=== PATIENT | male | born 1995 | race Caucasian/White ===

== ENCOUNTER 2018-07-05 20:18 | Emergency (ER) | payer BC ==
--- NOTE | 2018-07-05 20:24 | EDPHY ---
H & P Time Seen by Provider: 07/05/18 20:20 Constitutional: Initial Vital Signs Temperature (C) 36.9 C 07/05/18 20:21 Heart Rate 84 07/05/18 20:21 Respiratory Rate 16 07/05/18 20:21 Blood Pressure 149/95 H 07/05/18 20:21 O2 Sat (%) 95 07/05/18 20:21 O2 Delivery Mode Room Air Allergies/Adverse Reactions: No Known Allergies Allergy (Unverified 07/05/18 20:25) Home Medications: Medication Instructions Recorded NK [No Known Home Meds] 07/05/18 Medical Decision Making - Diagnostics Imaging: Discussed imaging studies w/ call center specialist Radiologist, I viewed and interpreted images myself - Diagnostics Imaging Results: Imaging Impressions Head CT 07/05/18 20:28 Impression: 1. There is an 8.9 x 6.0 x 1.7 cm posterior parietal-high occipital scalp/ subgaleal hematoma. 2. There is no skull fracture or acute intracranial abnormality identified on this unenhanced CT evaluation. If there is further clinical concern regarding the patient's symptoms, MR imaging is suggested, if not otherwise contraindicated. Findings were discussed with Chase Stokes MD at 20:58, on 07/05/2018. Procedures: Laceration Repair - SCALP LACERATION 1. Verbal consent obtained by patient. Risks discussed, including but not limited to infection, pain, retained foreign body, need for additional repair, poor cosmetic result, tendon damage, nerve damage, poor wound healing, vascular damage. Alternatives to repair discussed. [place] protocol used to establish correct patient, procedure, equipment, legal support manager, and site. Anesthesia obtained by local infiltration. Anesthetized with 2% lidocaine with epinephrine. Laceration location occiput, length 4 cm, depth 3 mm, Repair type simple. Patient was prepped and draped in usual sterile fashion. Hemostasis achieved with direct pressure. Wound explored through full range of motion and entire depth of wound probed and visualized with gloved finger. No suspicion for nerve damage, tendon damage, underlying fracture, vascular damage, foreign body, or contamination. Area was cleansed with Shur-Clens and irrigated with sterile saline as per protocol. No foreign body or material removed. Repair method 4 0 VICRYL SUTURES, SIMPLE INTERRUPTED. One of sutures placed. Seven valentni placed superficially. Well aligned, closely approximated. wound was dressed with . Patient tolerated well with no immediate complications. Wound care: Clean and dry x 24 hours, gently clean with soap and water, cover with topical antibiotic ointment/bandage. Suture/Staple removal: 10-14 Days Laceration Repair - scalp laceration 2. Verbal consent obtained by patient. Risks discussed, including but not limited to infection, pain, retained foreign body, need for additional repair, poor cosmetic result, tendon damage, nerve damage, poor wound healing, vascular damage. Alternatives to repair discussed. [place] protocol used to establish correct patient, procedure, equipment, legal support manager, and site. Anesthesia obtained by local infiltration. Anesthetized with 2% lidocaine with epinephrine. Laceration location occiput, length 3 cm, depth 3 mm, Repair type simple. Patient was prepped and draped in usual sterile fashion. Hemostasis achieved with direct pressure. Wound explored through full range of motion and entire depth of wound probed and visualized with gloved finger. No suspicion for nerve damage, tendon damage, underlying fracture, vascular damage, foreign body, or contamination. Area was cleansed with Shur-Clens and irrigated with sterile saline as per protocol. No foreign body or material removed. Repair method 4 0 Vicryl suture, 2 simple interrupted. two of sutures placed. Eleven valentin placed Well aligned, closely approximated. wound was dressed with nothing. Patient tolerated well with no immediate complications. Wound care: Clean and dry x 24 hours, gently clean with soap and water, cover with topical antibiotic ointment/bandage. Suture/Staple removal: 10-14 Days (Bob Noyola) ED Course/Re-evaluation: CHIEF COMPLAINT: Head injury secondary skateboarding fall HISTORY OF PRESENT ILLNESS: The patient is a 22 y/o male arriving via EMS in a c-collar after falling off of his skateboard tonight. The patient hit a patch of sand and subsequently fell off his skateboard when he wasn't wearing a helmet. He hit his head and now has a "blank spot" in his memory. A bystander witnessed the fall and called EMS. He denies using alcohol or drugs today. No fever, body aches, lightheadedness, chest pain, heart palpitations, shortness of breath, cough, abdominal pain, urinary or bowel complaints, numbness, paresthesias. REVIEW OF SYSTEMS: A 10 point review of systems was performed and is negative with the exception of the elements mentioned in the history of present illness. PHYSICAL EXAM: HR, BP, O2 Sat, RR. Temp noted General Appearance: Alert, well hydrated, appropriate, and non-toxic appearing. Head: 2.5cm laceration and 3 cm to occiput. Eyes: Pupils equal, round, reactive to light and accommodation, EOMI, no trauma , no injection. Ears: Clear bilaterally, no perforation, normal landmarks Nose: Atraumatic, no rhinorrhea, clear. Throat: There is no erythema or exudates, no lesions, normal tonsils, mucus membranes moist. Neck: Supple, 2+ carotid upstroke, nontender, no lymphadenopathy. Respiratory: No retractions, no distress, no wheezes, and no accessory muscle use. Lungs are clear to auscultation bilaterally. Cardiovascular: Regular rate and rhythm, no murmurs, rubs, or gallops. Bilateral carotid, radial, dorsalis pedis, and posterior tibial pulses intact. Good capillary refill all extremities. Gastrointestinal: Abdomen is soft, nontender, non-distended, no masses, no rebound, no guarding, no peritoneal signs. Musculoskeletal: Normal active ROM of all extremities, atraumatic. Neurological: Alert, appropriate, and interactive. The patient has normal DTRs and non-focal cranial nerves, motor, sensory, and cerebellar exam. Skin: No rashes, good turgor, no nodules on palpation. Past medical history: Denies Past surgical history: Denies Family history: Denies Social history: Student at , single, lives in [place] DIAGNOSTICS/PROCEDURES/CRITICAL CARE TIME: Head CT: No acute findings. DIFFERENTIAL DIAGNOSIS: The differential diagnosis for the patient's head injury included but was not limited to concussion, skull fracture, intra-parenchymal contusion, subarachnoid , subdural and epidural hematoma. MEDICAL DECISION MAKING: The patient is a 22 y/o male arriving via EMS in a c-collar after falling off of his skateboard tonight. He did lose consciousness for an unknown amount of time and as amnesia regarding the fall. He was not helmeted. On exam he has a 2.5cm laceration and 3 cm laceration to his occiput. I also removed his C- collar as he cleared his c-spine. Head CT ordered. STEFFANY Noyola will suture the laceration. 2100: I spoke with Dr. Gomez, radiologist, regarding patients head CT. There are no acute findings. 2103: Reassessed patient and discussed imaging studies. I have advised him to follow up with Dr. Foster and follow post-concussive precautions. Return precautions provided; patient is comfortable with this plan. (Chase Stokes) Departure - Departure Disposition: Home, Routine, Self-Care Clinical Impression: Head injury Qualifiers: Encounter type: initial encounter Qualified Code(s): S09.90XA - Unspecified injury of head, initial encounter Laceration of head Qualifiers: Encounter type: initial encounter Location of open wound of head: scalp Foreign body presence: without foreign body Qualified Code(s): S01.01XA - Laceration without foreign body of scalp, initial encounter Condition: Good Instructions: Laceration (ED), Concussion (ED), Head Injury (ED) Additional Instructions: 1. Apply ice to sore areas and take 600mg ibuprofen every 6-8 hours or 650mg Tylenol every 4-6 hours for pain for the next few days. 2. Cognitive rest while symptoms are present. Avoid screen time including TV, phones, and computers until symptoms improve. 3. Physical rest while symptoms are present. Avoid any activities that could put you at further risk for a head injury until your symptoms resolve including contact sports, bicycling, etc. This may be 2 weeks or longer. 4. Follow up with Dr. Foster, head injury specialist, for unimproved symptoms over the next 10-14 days. It's not uncommon to experience fatigue, mood swings, and difficulty concentrating with concussions. 5. Return to the ED for severe headache, weakness or numbness on one side of your body, vision changes, or other worsening of condition. 6. Return to the Emergency Department for fever, redness, discharge from wound, increasing pain or other worsening of condition. Referrals: Lilliam Foster MD [Medical Doctor] - As per Instructions Report Scribed for: Chase Stokes Report Scribed by: Leticia Santiago Date of Report: 07/05/18 Time of Report: 20:24
[2018-07-05 22:10] VITALS: BP 130/82
== END 2018-07-05 22:09 | disposition home or self-care (01) ==
PROC: 0HQ0XZZ Repair Scalp Skin, External Approach (ICD-10-PCS; principal; 2018-07-05)
DX: S01.01XA Laceration without foreign body of scalp, initial encounter (principal); V00.131A Fall from skateboard, initial encounter; Y92.830 Public park as the place of occurrence of the external cause; Y93.51 Activity, roller skating (inline) and skateboarding